=== PATIENT | female | born 1995 | race Caucasian/White ===

== ENCOUNTER 2017-07-06 16:33 | Emergency (ER) | payer OTHER ==
[~2017-07-06] VITALS: Ht 165.1 cm; Wt 59.9 kg
[2017-07-06 16:56] VITALS: Ht 165.1 cm; Wt 59.9 kg
[2017-07-06 22:49] LABS: microscopic required? NO
[2017-07-06 22:57] VITALS: BP 139/82
[2017-07-06 23:19] LABS: UA SPECIFIC GRAVITY >=1.030 (1.005-1.035); urine erythrocyte NEGATIVE (NEGATIVE)
== END 2017-07-06 22:57 | disposition home or self-care (01) ==
LOC: ED 16:33
PROVIDERS: Emergency Medicine
DX: N89.8 Other specified noninflammatory disorders of vagina (principal)
CPT/HCPCS: 87491; 87591

== ENCOUNTER 2018-02-21 20:48 | Emergency (ER) | payer OTHER ==
[~2018-02-21] VITALS: Ht 165.1 cm; Wt 56.7 kg
[2018-02-21 20:58] VITALS: Ht 165.1 cm; Wt 56.7 kg
[2018-02-21 21:28] LABS: BASOPHIL % 0.5 % (0-2); PLATELET COUNT 258 x10^3mcL (130-400); RED CELL DISTRIBUTION WIDTH 13.6 % (11.5-14.5)
[2018-02-21 21:36] LABS: CALCIUM 8.5 mg/dL (8.5-10.1); CARBON DIOXIDE 25.7 mmol/L (21-32); CHLORIDE SERUM 107 mmol/L (98-107); CREATININE SERUM 0.8 mg/dL (0.6-1.0); GFR1 > 60 mL/min; GLUCOSE SERUM 96 mg/dL (74-106); POTASSIUM SERUM 3.6 mmol/L (3.5-5.1); SODIUM SERUM 141 mmol/L (136-145)
[2018-02-21 21:41] LABS: ALBUMIN 3.9 g/dL (3.4-5.0); ALKALINE PHOSPHATASE 53 U/L (46-116); ALT/SGPT 40 U/L (14-59); AST/SGOT 21 U/L (15-37); BILIRUBIN TOTAL 0.26 mg/dL (0.20-1.00); LIPASE 156 IU/L (73-393); TOTAL PROTEIN, SERUM 7.7 g/dL (6.4-8.2)
[2018-02-21 22:25] VITALS: BP 123/81
== END 2018-02-21 22:25 | disposition home or self-care (01) ==
LOC: ED 20:48
PROVIDERS: Emergency Medicine
DX: K52.9 Noninfective gastroenteritis and colitis, unspecified (principal)
CPT/HCPCS: J7030

== ENCOUNTER 2019-06-15 02:58 | Emergency (ER) | payer OTHER ==
[~2019-06-15] VITALS: Ht 165.1 cm; Wt 69.0 kg
[2019-06-15 03:13] VITALS: BP 116/74; Ht 165.1 cm; Wt 69.0 kg
== END 2019-06-15 08:04 | disposition left against medical advice (07) ==
LOC: ED 02:58
DX: Z53.21 Procedure and treatment not carried out due to patient leaving prior to being seen by health care provider (principal)